=== PATIENT | female | born 1970 | race Hispanic/Latino ===

== ENCOUNTER 2020-07-07 01:25 | Emergency (ER) | payer OTHER ==
[2020-07-07] MEDS ORDERED: MORPHINE 4 MG/ML SYR ONE ×2 (01:52→06:40)
[2020-07-07] MEDS ORDERED: FENTANYL CITR 100 MCG/2 ML ONE (03:26)
[2020-07-07] MEDS ORDERED: NA CHLORIDE 0.9% 1,000 ML ONE (03:29)
[2020-07-07] MEDS ORDERED: ONDANSETRON 4 MG/2 ML VIAL ONE (03:38)
[2020-07-07 05:04] LABS: Absolute Lymphocytes (CBC) 1.4 K/uL (0.7-4.9); Basophils % 0.5 % (0-1.3); Hematocrit 35.2 % (36.0-45.0); Lymphocytes % 24.2 % (15.3-44.8); MPV 8.2 fL (7.6-11.3); RBC Red Blood Cell Count 3.81 M/uL (3.86-4.86)
[2020-07-07 05:05] LABS: Protime INR 0.96
--- NOTE | 2020-07-07 05:09 | ER ---
Nurse's Notes [facility] Name: Daniel Romano Age: 49 yrs Sex: Female : 1970 Arrival Date: 07/07/2020 Time: : Bed 8 Private MD: Diagnosis: Right Ankle Fracture Dislocation Presentation: 07/07 01:26 Chief complaint: EMS states: FALL FROM STANDING POSITION. TWISTED THE RIGHT ANKLE. rv DENIES LOC. + ETOH. Care prior to arrival: None. 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 Mechanism of Injury: Fall from standing position. Trauma event details: Injury occurred in the [facility], Injury occurred: Injury occurred: July 07, 2020 Injury occurred at: 01:00. :26 Acuity: MAXIMILIANO 3 rv : Method Of Arrival: EMS: [facility] rv 01:35 Coronavirus screen: At this time, the client does not indicate any symptoms associated rv with coronavirus-19. Ebola Screen: No symptoms or risks identified at this time. Initial Sepsis Screen: Does the patient meet any 2 criteria? No. Patient's initial sepsis screen is negative. Does the patient have a suspected source of infection? No. Patient's initial sepsis screen is negative. Risk Assessment: Do you want to hurt yourself or someone else? Patient reports no desire to harm self or others. Onset of symptoms was July 07, 2020 at 01:00. ANY COMMODITY BUYER: 01:35 LMP N/A - Hysterectomy rv Trauma Activation: Not Applicable Physician: ED Physician; Name: ; Notified At: ; Arrived At: Physician: General Surgeon; Name: ; Notified At: ; Arrived At: Physician: Radiology; Name: ; Notified At: ; Arrived At: Physician: Respiratory; Name: ; Notified At: ; Arrived At: Physician: Lab; Name: ; Notified At: ; Arrived At: Historical: - Allergies: 01:36 No Known Allergies; rv - PMHx: 01:36 Hypertension; Anxiety; Depression; rv - PSHx: 01:36 Hysterectomy; rv - Immunization history: Last tetanus immunization: - up to date. - Social history:: Smoking status: Patient denies any tobacco usage or history of. Screenin:34 Abuse screen: Denies threats or abuse. Denies injuries from another. Tuberculosis rv screening: No symptoms or risk factors identified. 01:37 Nutritional screening: No deficits noted. Fall Risk None identified. rv Primary Survey: 01:30 NO uncontrolled hemorrhage observed. Breathing/Chest: Respiratory pattern: regular. rv Circulation: Skin color: pink. Disability Alert. Exposure/Environment: There is no evidence of uncontrolled external bleeding. A warming method has been applied: A warm blanket has been provided to the patient. 05:46 Reassessment Airway Airway Patent Breathing/Chest Respiratory pattern Regular rv Circulation Pulses Palpable. Secondary Survey: 01:31 HEENT: Head No injury/deformity Face No injury/deformity Eyes: No injury or deformity rv noted. Ears: clear bilaterally. Nose: clear Throat: is clear. Gastrointestinal: No deficits noted. : No signs and/or symptoms were reported regarding the genitourinary system. Musculoskeletal: Swelling present in right ankle. Assessment: 01:26 General: Appears uncomfortable, Behavior is calm, cooperative. Pain: Complains of pain rv in right ankle Pain currently is 10 out of 10 on a pain scale. Neuro: Level of Consciousness is awake, alert, obeys commands, Oriented to person, place, time, situation. EENT: No signs and/or symptoms were reported regarding the EENT system. Cardiovascular: Patient's skin is warm and dry. Respiratory: Airway is patent Respiratory effort is even, unlabored, Breath sounds are clear bilaterally. Derm: Skin is intact. 02:16 Reassessment: family updated via phone call. updated personally. awaiting rv radiology report. patient is comfortable at this time. 04:37 Reassessment:. rv 04:39 Reassessment: PATIENT IS MORE COMFORTABLE AFTER REDUCTION AND SPLINT APPLICATION. rv UPDATED ON THE PLAN OF CARE. 05:47 Reassessment: PATIENT FOR TRANSFER TO [facility]. AWAITING rv TRANSPORTATION. PATIENT AND FAMILY AWARE OF WAITING TIME. Neuro: Level of Consciousness is awake, alert, obeys commands, Oriented to person, place, time, situation. Respiratory: Airway is patent Respiratory effort is even, unlabored, Breath sounds are clear bilaterally. 06:32 Reassessment: REPORT GIVEN TO PARAMEDICS. rv Vital Signs: 01:29 BP 116 / 75 LA Supine (auto/reg); Pulse 88 MON; Resp 18 S; Temp 98.5(O); Pulse Ox 98% ds4 on R/A; Pain 10/10; 01:36 Weight 81.65 kg; Height 5 ft. 0 in. (152.40 cm); Pain 10/10; rv 02:16 BP 105 / 66; Pulse 87; Resp 15; Pulse Ox 98% on R/A; rv 03:30 BP 104 / 71; Pulse 93; Resp 17; Pulse Ox 96% on R/A; rv 04:30 BP 96 / 64; Pulse 87; Resp 15; Pulse Ox 97% on 2 lpm NC; rv 05:30 BP 98 / 63; Pulse 82; Resp 17; Temp 98; Pulse Ox 98% on 2 lpm NC; rv 06:31 BP 101 / 63; Pulse 82; Resp 17; Temp 98; Pulse Ox 98% on 2 lpm NC; rv 01:36 Body Mass Index 35.15 (81.65 kg, 152.40 cm) rv [place] Coma Score: 01:35 Eye Response: spontaneous(4). Verbal Response: oriented(5). Motor Response: obeys rv commands(6). Total: 15. 03:31 Eye Response: spontaneous(4). Verbal Response: oriented(5). Motor Response: obeys rv commands(6). Total: 15. 04:39 Eye Response: spontaneous(4). Verbal Response: oriented(5). Motor Response: obeys rv commands(6). Total: 15. 06:31 Eye Response: spontaneous(4). Verbal Response: oriented(5). Motor Response: obeys rv commands(6). Total: 15. Trauma Score (Adult): 01:35 Eye Response: spontaneous(1); Verbal Response: oriented(1); Motor Response: obeys rv commands(2); Systolic BP: > 89 mm Hg(4); Respiratory Rate: 10 to 29 per min(4); William Score: 15; Trauma Score: 12 ED Course: 01:26 Patient arrived in ED. cl3 01:26 Volodymyr Cheek RN is Primary Nurse. rv 01:29 Steve Silva MD is Attending Physician. mh7 01:29 Triage completed. rv 01:34 Patient has correct armband on for positive identification. Bed in low position. Call rv light in reach. Side rails up X2. Patient maintains SpO2 saturation greater than 95% on room air. 01:34 Patient maintains SpO2 saturation greater than 95% on room air. rv 01:35 Splint/sling/ice applied as appropriate. Arm band placed on right wrist. Patient placed rv in the treatment room, on a stretcher, Patient notified of wait time. 01:37 Thermoregulation: warm blanket given to patient. rv 03:10 Inserted saline lock: 20 gauge in right antecubital area, using aseptic technique. rv 03:28 Assist provider with fracture care of right ankle Fracture is closed. Obvious deformity rv is noted. Circulation, motor and sensation is intact. Set up for procedure. Performed by Steve Silva MD Reduced with physical manipulation. Immobilized with orthoglass splint. Post immobilization, circulation, motor and sensation remain intact. Patient tolerated well. Orthoglass splint: Posterior short lleg splint applied on right leg. stirrup splint applied on right leg. 04:48 initiated a transfer with Samuel Skaggs RN from [facility]. [facility] 05:02 administrative approval given by Samuel Skaggs RN/ patient has been accepted to [address] emergency department/ Dr. Mak has accepted the patient in transfer/ report to be called to [phone]. 06:31 Patient transferred, IV remains in place. rv Administered Medications: 01:44 Drug: morphine 4 mg {Note: RASS 0.} Route: IM; Site: right deltoid; rv 04:38 Follow up: Response: No adverse reaction; Pain is decreased; RASS: Alert and Calm (0) rv 03:15 Drug: NS 0.9% 1000 ml Route: IV; Rate: 1 bolus; Site: right antecubital; rv 05:49 Follow up: IV Status: Completed infusion; IV Intake: 1000ml rv 03:15 Drug: fentaNYL (PF) 25 mcg {Note: rass 0.} Route: IVP; Site: right antecubital; rv 05:49 Follow up: Response: No adverse reaction; Marked relief of symptoms; Pain is decreased; rv RASS: Alert and Calm (0) 03:28 Drug: Zofran (Ondansetron) 4 mg Route: IVP; Site: right antecubital; rv 04:38 Follow up: Response: No adverse reaction; Marked relief of symptoms rv 06:30 Drug: morphine 4 mg {Note: RASS 0.} Route: IVP; Site: right antecubital; rv 06:31 Follow up: Response: Medication administered at discharge. rv Intake: 05:48 IV: 1000ml (IV Fluid); Total: 1000ml. rv 05:49 IV: 1000ml; Total: 2000ml. rv Output: 05:48 Urine: 400ml (Voided); Total: 400ml. rv Outcome: 05:09 ER care complete, transfer ordered by . mh7 05:47 Patient's length of stay in the Emergency Department was greater than 2 hours. rv Patient's length of stay was extended due to receiving facility on divert. 06:31 Transferred by ground EMS to [facility], Transfer form completed. X-rays sent rv w/ patient. 06:31 Condition: good 06:31 Instructed on the need for transfer. 06:33 Patient left the ED. rv Signatures: Mohit Muniz ds4 Cortney Worley mw2 Volodymyr Cheek RN RN Chauncey Roque cl3 Steve Silva MD MD mh7
--- NOTE | 2020-07-07 05:10 | EDPHYS ---
Physician Documentation [facility] Name: Daniel Romano Age: 49 yrs Sex: Female : 1970 Arrival Date: 07/07/2020 Time: : Bed 8 Private MD: ED Physician Steve Silva HPI: 07/07 01:36 This 49 yrs old Female presents to ER via EMS with complaints of Fall Injury. mh7 01:36 Details of fall: The patient fell from an upright position, while walking. Onset: The mh7 symptoms/episode began/occurred today. 01:37 Associated injuries: The patient sustained right ankle, painful injury, swelling. mh7 Severity of symptoms: At their worst the symptoms were moderate, earlier today, in the emergency department the symptoms are unchanged. 05:17 [place] got caught on something mh7 and she fell injuring her right ankle. She admits to drinking alcohol. She denies any head trauma or LOC. She denies any neck pain, chest pain, abdominal pain, nausea, vomiting, dizziness, numbness/tingling, or weakness.. 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 - Social history:: Smoking status: Patient denies any tobacco usage or history of. ROS: 01:37 Constitutional: Negative for fever, chills, and weight loss, Eyes: Negative for injury, mh7 pain, redness, and discharge, ENT: Negative for injury, pain, and discharge, Neck: Negative for injury, pain, and swelling, Cardiovascular: Negative for chest pain, palpitations, and edema, Respiratory: Negative for shortness of breath, cough, wheezing, and pleuritic chest pain, Abdomen/GI: Negative for abdominal pain, nausea, vomiting, diarrhea, and constipation, Back: Negative for injury and pain, : Negative for injury, bleeding, discharge, and swelling, Skin: Negative for injury, rash, and discoloration, Neuro: Negative for headache, weakness, numbness, tingling, and seizure, Psych: Negative for depression, anxiety, suicide ideation, homicidal ideation, and hallucinations, Allergy/Immunology: Negative for hives, rash, and allergies, Endocrine: Negative for neck swelling, polydipsia, polyuria, polyphagia, and marked weight changes, Hematologic/Lymphatic: Negative for swollen nodes, abnormal bleeding, and unusual bruising. Exam: 01:37 Head/Face: Normocephalic, atraumatic. Eyes: Pupils equal round and reactive to light, mh7 extra-ocular motions intact. Lids and lashes normal. Conjunctiva and sclera are non-icteric and not injected. Cornea within normal limits. Periorbital areas with no swelling, redness, or edema. ENT: Nares patent. No nasal discharge, no septal abnormalities noted. Tympanic membranes are normal and external auditory canals are clear. Oropharynx with no redness, swelling, or masses, exudates, or evidence of obstruction, uvula midline. Mucous membranes moist. Neck: Trachea midline, no thyromegaly or masses palpated, and no cervical lymphadenopathy. Supple, full range of motion without nuchal rigidity, or vertebral point tenderness. No Meningismus. Chest/axilla: Normal chest wall appearance and motion. Nontender with no deformity. No lesions are appreciated. Cardiovascular: Regular rate and rhythm with a normal S1 and S2. No gallops, murmurs, or rubs. Normal PMI, no JVD. No pulse deficits. Respiratory: Lungs have equal breath sounds bilaterally, clear to auscultation and percussion. No rales, rhonchi or wheezes noted. No increased work of breathing, no retractions or nasal flaring. Abdomen/GI: Soft, non-tender, with normal bowel sounds. No distension or tympany. No guarding or rebound. No evidence of tenderness throughout. Back: No spinal tenderness. No costovertebral tenderness. Full range of motion. Skin: Warm, dry with normal turgor. Normal color with no rashes, no lesions, and no evidence of cellulitis. 01:37 Neuro: Awake and alert, GCS 15, oriented to person, place, time, and situation. Cranial nerves II-XII grossly intact. Motor strength 5/5 in all extremities. Sensory grossly intact. Cerebellar exam normal. Normal gait. Psych: Awake, alert, with orientation to person, place and time. Behavior, mood, and affect are within normal limits. 01:37 Constitutional: The patient appears in no acute distress, alert, awake, uncomfortable. 01:37 Musculoskeletal/extremity: Extremities: noted in the right ankle: pain, swelling, tenderness, ROM: limited active range of motion, in the right ankle, limited passive range of motion, in the right ankle, limited active range of motion due to pain, in the right ankle, limited passive range of motion due to pain, in the right ankle, Pulses: are normal with no appreciated deficits, Perfusion: the patient is normally perfused throughout, Perfusion: the extremity is normally perfused throughout, Calf tenderness, is absent, Edema, is not appreciated, Sensation intact. Compartment Syndrome exam of affected extremity: is normal. no numbness, no tingling, no sensation deficit, no palor, no weak pulses, Joints: the right ankle displays pain at rest, painful range of motion, swelling, tenderness, Weight bearing: is unable to bear weight, Tendon exam: specific tendon testing normal through active and passive range of motion Calves: are non-tender, have equal circumference. Vital Signs: 01:29 BP 116 / 75 LA Supine (auto/reg); Pulse 88 MON; Resp 18 S; Temp 98.5(O); Pulse Ox 98% ds4 on R/A; Pain 10/10; 01:36 Weight 81.65 kg; Height 5 ft. 0 in. (152.40 cm); Pain 10/10; rv 02:16 BP 105 / 66; Pulse 87; Resp 15; Pulse Ox 98% on R/A; rv 03:30 BP 104 / 71; Pulse 93; Resp 17; Pulse Ox 96% on R/A; rv 04:30 BP 96 / 64; Pulse 87; Resp 15; Pulse Ox 97% on 2 lpm NC; rv 05:30 BP 98 / 63; Pulse 82; Resp 17; Temp 98; Pulse Ox 98% on 2 lpm NC; rv 06:31 BP 101 / 63; Pulse 82; Resp 17; Temp 98; Pulse Ox 98% on 2 lpm NC; rv 01:36 Body Mass Index 35.15 (81.65 kg, 152.40 cm) rv Driver Coma Score: 01:35 Eye Response: spontaneous(4). Verbal Response: oriented(5). Motor Response: obeys rv commands(6). Total: 15. 03:31 Eye Response: spontaneous(4). Verbal Response: oriented(5). Motor Response: obeys rv commands(6). Total: 15. 04:39 Eye Response: spontaneous(4). Verbal Response: oriented(5). Motor Response: obeys rv commands(6). Total: 15. 06:31 Eye Response: spontaneous(4). Verbal Response: oriented(5). Motor Response: obeys rv commands(6). Total: 15. Trauma Score (Adult): 01:35 Eye Response: spontaneous(1); Verbal Response: oriented(1); Motor Response: obeys rv commands(2); Systolic BP: > 89 mm Hg(4); Respiratory Rate: 10 to 29 per min(4); William Score: 15; Trauma Score: 12 Procedures: 05:09 Splinting: Splint applied to right ankle using Orthoglass splint, applied by myself. 7 nurse. post reduction film - reveals improved alignment, Examined by me, post splint application: neurovascular intact, 2+ distal pulses palpable, brisk capillary refill noted, Patient tolerated well. Reduction: of the right ankle, using traction, Immobilized with OCL splint, Patient tolerated well. Post reduction film - reveals improved alignment. MDM: 01:35 Patient medically screened. [facility] 05:06 Differential diagnosis: abrasion, contusion, fracture. Data reviewed: vital signs, [facility] nurses notes, EMS record, lab test result(s), radiologic studies, plain films. Data interpreted: Pulse oximetry: on room air is 97 %. Interpretation: normal. Counseling: I had a detailed discussion with the patient and/or guardian regarding: the historical points, exam findings, and any diagnostic results supporting the discharge/admit diagnosis, lab results, radiology results, the need to transfer to another facility, for higher level of care, [facility] does not immediately have the required specialist. Response to treatment: the patient's symptoms have markedly improved after treatment. 07/07 04:41 Order name: Basic Metabolic Panel 07/07 04:41 Order name: CBC with Diff 07/07 04:41 Order name: Type And Screen 07/07 04:41 Order name: Protime (+inr) 07/07 04:41 Order name: Ptt, Activated 07/07 04:41 Order name: UDS rv 09/27 04:41 Order name: ETOH Level rv 07/07 05:05 Order name: CBC with Automated Diff; Complete Time: 05:06 EDMS 07/07 05:05 Order name: Protime (+INR); Complete Time: 05:06 EDMS 07/07 05:05 Order name: PTT, Activated Partial Thromb; Complete Time: 05:06 EDMS 07/07 05:12 Order name: Basic Metabolic Panel; Complete Time: 05:13 EDMS 07/07 05:12 Order name: Urine Drug Screen; Complete Time: 05:13 EDMS 07/07 05:45 Order name: Alcohol Serum/Plasma; Complete Time: 05:54 EDMS 07/07 06:07 Order name: ABO/RH no charge; Complete Time: 06:26 EDMS 07/07 01:36 Order name: Ankle Right 3 View XRAY 7 07/07 01:36 Order name: Foot Right 3 View XRAY mh7 07/07 03:24 Order name: Ankle Right 3 View XRAY ds4 07/07 03:24 Order name: Foot Right 3 View XRAY ds4 07/07 04:41 Order name: Labs collected and sent; Complete Time: 04:56 rv Administered Medications: 01:44 Drug: morphine 4 mg {Note: RASS 0.} Route: IM; Site: right deltoid; rv 04:38 Follow up: Response: No adverse reaction; Pain is decreased; RASS: Alert and Calm (0) rv 03:15 Drug: NS 0.9% 1000 ml Route: IV; Rate: 1 bolus; Site: right antecubital; rv 05:49 Follow up: IV Status: Completed infusion; IV Intake: 1000ml rv 03:15 Drug: fentaNYL (PF) 25 mcg {Note: rass 0.} Route: IVP; Site: right antecubital; rv 05:49 Follow up: Response: No adverse reaction; Marked relief of symptoms; Pain is decreased; rv RASS: Alert and Calm (0) 03:28 Drug: Zofran (Ondansetron) 4 mg Route: IVP; Site: right antecubital; rv 04:38 Follow up: Response: No adverse reaction; Marked relief of symptoms rv 06:30 Drug: morphine 4 mg {Note: RASS 0.} Route: IVP; Site: right antecubital; rv 06:31 Follow up: Response: Medication administered at discharge. rv Disposition: 07/07/20 05:09 Transfer ordered to [facility]. Diagnosis is Right Ankle Fracture Dislocation. - Reason for transfer: Higher level of care. - Accepting physician is Dr. Mak. - Condition is Stable. - Problem is new. - Symptoms have improved. Signatures: Dispatcher [employer] EDVolodymyr Jaramillo RN RN rv Steve Silva MD MD mh7 Corrections: (The following items were deleted from the chart) 01:38 01:36 Associated injuries: The patient sustained mh7 mh7 06:33 05:09 07/07/2020 05:09 Transfer ordered to [facility]. Diagnosis is Right rv Ankle Fracture Dislocation. Reason for transfer: Higher level of care. Accepting physician is Dr. Mak. Condition is Stable. Problem is new. Symptoms have improved. mh7
[2020-07-07 05:12] LABS: BUN Blood Urea Nitrogen 9 mg/dL (7-18); Barbiturates NEGATIVE (NEGATIVE); Benzodiazepines NEGATIVE (NEGATIVE); Bicarbonate 25 mmol/L (21-32); Cocaine NEGATIVE (NEGATIVE); Glucose Level 102 mg/dL (74-106); METHAMPHETAM NEGATIVE (NEGATIVE); Methadone NEGATIVE (NEGATIVE); Opiates NEGATIVE (NEGATIVE); Phencyclidine NEGATIVE (NEGATIVE); Potassium 3.4 mmol/L (3.5-5.1); Sodium Level 136 mmol/L (136-145); THC Cannibis POSITIVE (NEGATIVE)
[2020-07-07 07:01] VITALS: TEMP 98; O2SAT 98
[2020-07-07 07:03] VITALS: BP 101/63
--- NOTE | 2020-07-08 09:33 | RAD REPORT ---
EXAM DESCRIPTION: RAD - Foot Right 3 View - 07/07/2020 2:02 am CLINICAL HISTORY: Trauma TECHNIQUE: Three views of the right ankle are submitted. COMPARISON: None available for comparison FINDINGS: Bones: Laterally displaced transversely oriented medial malleolus fracture. Mildly displac ed obliquely oriented distal fibular fracture at and above the level of the syndesmosis. Mildly proxi tory and laterally displaced posterior malleolus fracture. Joints: Offset of the ankle mortise with lateral displacement of the talus and foot with respect to t he distal tibia. Soft tissues: Circumferential soft tissue swelling. IMPRESSION: Findings compatible with a stage 4 Sanders B fracture dislocation. EXAM DESCRIPTION: XR Foot Right 3 View (accession [id number]) CLINICAL HISTORY: Trauma TECHNIQUE: Three views of the right foot are submitted. COMPARISON: None available for comparison FINDINGS: Bones: Laterally displaced transversely oriented medial malleolus fracture. Mildly displac ed obliquely oriented distal fibular fracture at and above the level of the syndesmosis. Mildly proxi tory and laterally displaced posterior malleolus fracture. Incidental note is made of an accessory n avicular. Joints: Offset of the ankle mortise with lateral displacement of the talus and foot with respect to t he distal tibia. Soft tissues: Circumferential soft tissue swelling. IMPRESSION: Findings compatible with a stage 4 Sanders B fracture dislocation. Electronically signed by: Willi Kam MD 07/07/2020 2:28 AM CDT Due to temporary technical issues with the PACS/Fluency reporting system, reports are being signed by the in house radiologist without review as a courtesy to ensure prompt reporting. The interpreting r adiologist is fully responsible for the content of the report.
--- NOTE | 2020-07-08 09:35 | RAD REPORT ---
EXAM DESCRIPTION: RAD - Ankle Right 3 View - 07/07/2020 3:48 am CLINICAL HISTORY: The patient is 49 years old and is Female; PAIN TECHNIQUE: Three views of the right ankle. COMPARISON: July 07, 2020 1:53 AM FINDINGS: Bones/joints: Bimalleolar fractures again noted, alignment is improved compared with the prior exam. Tibiotalar subluxation again noted, decreased. Soft tissues: Soft tissue swelling. Posterior splint noted. IMPRESSION: Bimalleolar fractures again noted, alignment is improved compared with the prior exam. T ibiotalar subluxation again noted, decreased. Posterior splint has been placed. Electronically signed by: Gale Horn MD 07/07/2020 4:21 AM CDT Due to temporary technical issues with the PACS/Fluency reporting system, reports are being signed by the in house radiologist without review as a courtesy to ensure prompt reporting. The interpreting r adiologist is fully responsible for the content of the report.
--- NOTE | 2020-07-08 09:37 | RAD REPORT ---
EXAM DESCRIPTION: RAD - Ankle Right 3 View - 07/07/2020 2:00 am CLINICAL HISTORY: Trauma TECHNIQUE: Three views of the right ankle are submitted. COMPARISON: None available for comparison FINDINGS: Bones: Laterally displaced transversely oriented medial malleolus fracture. Mildly displac ed obliquely oriented distal fibular fracture at and above the level of the syndesmosis. Mildly proxi tory and laterally displaced posterior malleolus fracture. Joints: Offset of the ankle mortise with lateral displacement of the talus and foot with respect to t he distal tibia. Soft tissues: Circumferential soft tissue swelling. IMPRESSION: Findings compatible with a stage 4 Sanders B fracture dislocation. EXAM DESCRIPTION: XR Foot Right 3 View (accession [id number]) CLINICAL HISTORY: Trauma TECHNIQUE: Three views of the right foot are submitted. COMPARISON: None available for comparison FINDINGS: Bones: Laterally displaced transversely oriented medial malleolus fracture. Mildly displac ed obliquely oriented distal fibular fracture at and above the level of the syndesmosis. Mildly proxi tory and laterally displaced posterior malleolus fracture. Incidental note is made of an accessory n avicular. Joints: Offset of the ankle mortise with lateral displacement of the talus and foot with respect to t he distal tibia. Soft tissues: Circumferential soft tissue swelling. IMPRESSION: Findings compatible with a stage 4 Sanders B fracture dislocation. Electronically signed by: Willi Kam MD 07/07/2020 2:28 AM CDT Due to temporary technical issues with the PACS/Fluency reporting system, reports are being signed by the in house radiologist without review as a courtesy to ensure prompt reporting. The interpreting r adiologist is fully responsible for the content of the report.
== END 2020-07-07 06:33 | disposition short-term general hospital (02) ==
LOC: ER 01:25
PROC: 0QSGXZZ Reposition Right Tibia, External Approach (ICD-10-PCS; principal; 2020-07-07)
PROC: 0QSGXZZ Reposition Right Tibia, External Approach (ICD-10-PCS; 2020-07-07)
DX: S82.891A Other fracture of right lower leg, initial encounter for closed fracture (principal); W19.XXXA Unspecified fall, initial encounter; Y93.01 Activity, walking, marching and hiking; Y92.832 Beach as the place of occurrence of the external cause; I10 Essential (primary) hypertension
CPT/HCPCS: 96361; 85025; 80048; 36415; 80320; 86900; 86850; 85610; 86901; 80307 ×8; 85730; 73630; 73610 ×2; 96375; 96372; 96374; 99285; 27810; J3010; J7030; J2405